=== PATIENT | female | born 1950 | race Caucasian/White ===

== ENCOUNTER 2019-06-11 09:24 | Outpatient (CLI) | payer MEDICARE, BC, SELFPAY ==
--- NOTE | ~2019-06-11 | XR_ITS ---
EXAMINATION: XR knee RT min 4V DATE: 06/11/2019 09:51 INDICATION: Right knee pain. TECHNIQUE: 4 views of right knee were obtained. COMPARISON: Right knee radiographs 06/18/2016 FINDINGS: Bone alignment is normal. No fracture. There is moderate osteoarthritis of medial and later al compartments and mild osteoarthritis of patellofemoral compartment. There is a moderate-sized knee joint effusion. IMPRESSION: 1. Moderate right knee osteoarthritis. 2. Moderate-sized right knee joint effusion. Reviewed, dictated and finalized at location A. 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
== END 2019-06-11 09:25 | disposition home or self-care (01) ==
PROVIDERS: PCP Family Medicine; Visit Provider Orthopaedic Surgery
DX: M25.561 Pain in right knee (principal)
CPT/HCPCS: 73564

== ENCOUNTER 2019-10-31 15:20 | Outpatient (CLI) | payer MEDICARE, BC, SELFPAY ==
--- NOTE | ~2019-10-31 | MR_ITS ---
EXAMINATION: MR cervical spine wo con DATE: 10/31/2019 17:10 INDICATION: Neck pain. TECHNIQUE: Magnetic resonance imaging (MRI) of the cervical spine was performed without intravenous c ontrast. Sequences included sagittal T2-weighted FSE, sagittal STIR FSE, sagittal T1-weighted FSE, ax ial MERGE, and axial T2-weighted FSE. COMPARISON: Cervical spine radiographs 10/17/2019 FINDINGS: There is 2 mm anterolisthesis of C4 on C5 and 2 mm retrolisthesis of C6 on C7. There is int erbody fusion at C5-C6. There is a hemangioma in T4 vertebral body. There is moderately decreased dis c height at C6-C7. The spinal cord signal intensity is normal. The following disc levels are specific ally discussed: C2-C3: The disc does not extend beyond the endplate margin. There is no uncovertebral joint osteoarth ritis. There is ankylosis of the facet joints with mild hypertrophy on the left. There is no neural f oraminal stenosis. There is no central canal stenosis. C3-C4: The disc does not extend beyond the endplate margin. There is no uncovertebral joint osteoarth ritis. There is ankylosis of the facet joints without hypertrophy. There is no neural foraminal steno sis. There is no central canal stenosis. C4-C5: The disc does not extend beyond the endplate margin. There is no uncovertebral joint osteoarth ritis. There is severe bilateral facet joint osteoarthritis. There is mild bilateral neural foraminal stenosis. There is no central canal stenosis. C5-C6: There is mild left uncovertebral joint hypertrophy. There is no facet joint hypertrophy. There is mild left neural foraminal stenosis. There is no central canal stenosis. C6-C7: The disc is bulging. There is mild bilateral uncovertebral joint osteoarthritis. There is mild bilateral facet joint hypertrophy. There is no neural foraminal stenosis. There is mild central arsenio l stenosis with ventral indentation of spinal cord. C7-T1: The disc does not extend beyond the endplate margin. There is no uncovertebral joint osteoarth ritis. There is severe bilateral facet joint osteoarthritis. There is mild bilateral neural foraminal stenosis. There is no central canal stenosis. IMPRESSION: 1. Moderate cervical spondylosis. 2. Interbody fusion at C5-C6. 3. Ankylosis of the facet joints at least at C2-C3 and C3-C4. Reviewed, dictated and finalized at location A.
== END 2019-10-31 15:21 | disposition home or self-care (01) ==
PROVIDERS: PCP Family Medicine; Visit Provider Orthopaedic Surgery
DX: M54.2 Cervicalgia (principal); M47.22 Other spondylosis with radiculopathy, cervical region; Z98.1 Arthrodesis status; M43.22 Fusion of spine, cervical region
CPT/HCPCS: 72141

== ENCOUNTER 2021-06-08 09:26 | Outpatient (CLI) | payer MEDICARE, BC, SELFPAY ==
--- NOTE | ~2021-06-08 | XR_ITS ---
EXAMINATION: [id number] EXAM DATE: 06/08/2021 09:47 INDICATION: No known recent injury provided at this time. Pain of the toes, bump on big toe. TECHNIQUE: Left foot standing dorsoplantar, lateral and oblique projections obtained and reviewed. T here is no prior study for comparison. FINDINGS: Left metatarsal bones unremarkable. There is moderate mid foot and 1st metatarsophalangeal arthritis probably primary osteoarthritis. 2nd toe appears significantly flexed at the proximal inte rphalangeal joint, less flexion of the other interphalangeal joints. There are no acute fractures marky ntified. There are no bony erosions identified. IMPRESSION: 1. Moderate polyarticular left foot osteoarthritis. 2. Interphalangeal flexion most at the 2nd PIP joint. Reviewed, dictated and finalized at location B. 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
--- NOTE | ~2021-06-08 | XR_ITS ---
EXAMINATION: [id number]_[id number]_CR EXAM DATE: 06/08/2021 09:47 INDICATION: Right 4th and 5th toe pain. Hammertoes. TECHNIQUE: Right foot standing dorsoplantar, lateral and oblique projections obtained and reviewed. There is no prior study for comparison. FINDINGS: Right metatarsal bones unremarkable. Mild to moderate polyarticular midfoot osteoarthriti s, mild 1st metatarsophalangeal and polyarticular interphalangeal osteoarthritis. 3rd and 4th toes ap pear hyperflexed at the proximal interphalangeal joint. There are no bony erosions identified. There are no acute fractures or dislocations identified. There is no subcutaneous gas. The soft tissue is unremarkable. There are no radiopaque foreign bodies. IMPRESSION: 1. Mild to moderate polyarticular osteoarthritis. 2. Hyperflexion right 4th, 5th PIP joints. Reviewed, dictated and finalized at location B. 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
== END 2021-06-08 09:27 | disposition home or self-care (01) ==
LOC: CHSIMG 09:29
PROVIDERS: PCP Family Medicine; Visit Provider Orthopaedic Surgery
DX: M79.672 Pain in left foot (principal); M79.671 Pain in right foot
CPT/HCPCS: 73630

== ENCOUNTER 2022-01-04 08:37 | Outpatient (CLI) | payer MEDICARE, BC, SELFPAY ==
--- NOTE | ~2022-01-04 | XR_ITS ---
XR hand RT min 3V 01/04/2022 09:02 Indication: Follow-up right hand fracture Procedure: Views right hand Comparison: Comparison to multiple prior studies sequentially, with oldest reviewed study dated 12/02. Findings: There is a healing comminuted intra-articular fracture proximal aspect of the right fifth m etacarpal. There is developing sclerosis and subtle periosteal reaction. Osteopenia. No significant s oft tissue abnormality. No foreign bodies. Impression: 1: Healing minimally displaced comminuted intra-articular fracture proximal aspect of the right fifth metacarpal. Reviewed, dictated and finalized at location B. Impression: 1: Healing minimally displaced comminuted intra-articular fracture proximal asp ect of the right fifth metacarpal.
== END 2022-01-04 08:38 | disposition home or self-care (01) ==
PROVIDERS: PCP Family Medicine; Visit Provider Orthopaedic Surgery
DX: S62.91XD Unspecified fracture of right hand, subsequent encounter for fracture with routine healing (principal)
CPT/HCPCS: 73130